=== PATIENT | male | born 2000 | race Caucasian/White ===

== ENCOUNTER 2021-11-21 14:27 | Emergency (ER) | payer OTHER ==
[~2021-11-21] VITALS: Ht 170.2 cm; Wt 74.4 kg
[2021-11-21 14:34] VITALS: BP 126/72
[2021-11-21 16:15] VITALS: BP 126/72
--- NOTE | 2021-11-21 16:15 | NUR ---
Patient discharged with v/s stable. Written and verbal after care instructions ABOUT DIZZINESS given and explained. Patient verbalized understanding. Ambulatory with steady gait. All questions addressed prior to discharge. Advised to follow up with PMD.
--- NOTE | 2021-11-21 16:15 | NUR ---
NO NURSING INTERVENTIONS PROVIDED
== END 2021-11-21 16:15 | disposition home or self-care (01) ==
LOC: MED 14:27
DX: R42 Dizziness and giddiness (principal); F12.90 Cannabis use, unspecified, uncomplicated
CPT/HCPCS: 99281